=== PATIENT | female | born 1990 | race Hispanic/Latino ===

== ENCOUNTER 2024-05-24 23:16 | Emergency (ER) | payer BC ==
[~2024-05-24] VITALS: Ht 160 cm; Wt 109.8 kg
[2024-05-25 00:02] VITALS: PULSE 120; RESP 22
[2024-05-25] MEDS: ALBUTEROL/IPRATROPIUM 3 ML NEB NEB ONE (00:02)
[2024-05-25] MEDS ORDERED: TYLENOL325 MG PO (00:13)
[2024-05-25] MEDS ORDERED: AZITHROMYCIN250 MG PO (00:13)
[2024-05-25] MEDS ORDERED: DIPHENHYDRAMINE25 M2 PO (00:13)
[2024-05-25] MEDS ORDERED: VENTOLIN HFA18 GM INH (00:13)
[2024-05-25 00:20] VITALS: PULSE 101; RESP 18; TEMP 98.3; O2SAT 98
== END 2024-05-25 00:20 | disposition home or self-care (01) ==
LOC: FSED 23:19
DX: R06.00 Dyspnea, unspecified (principal); J06.9 Acute upper respiratory infection, unspecified; R05.9 Cough, unspecified; J98.01 Acute bronchospasm; Z11.52 Encounter for screening for COVID-19
CPT/HCPCS: 0223U; 71046; 87400; 99283